=== PATIENT | female | born 1990 | race Hispanic/Latino ===

== ENCOUNTER 2019-06-05 11:02 | Emergency (ER) | payer MEDICAID ==
[2019-06-05] MEDS ORDERED: ONDANSETRON ODT 4 MG TAB ONE (11:15)
[2019-06-05] MEDS ORDERED: ACETAMINOPHEN EXTRA STRENGTH 500 MG TABLET ONE (12:34)
[2019-06-05 12:51] LABS: RAPID GROUP A STREP NEGATIVE (NEGATIVE)
[2019-06-05 13:15] LABS: APPEARANCE,URINE CLEAR (CLEAR); BILIRUBIN,URINE MODERATE (NEGATIVE); COLOR,URINE YELLOW (YELLOW); GLUCOSE, URINE (UA) 100 mg/dL (NEGATIVE); KETONES,URINE 5 mg/dL (NEGATIVE); LEUKOCYTE ESTERASE ,URINE NEGATIVE (NEGATIVE); NITRATE,URINE POSITIVE (NEGATIVE); OCCULT BLOOD,URINE LARGE (NEGATIVE); PROTEIN,URINE 30 mg/dL (NEGATIVE)
[2019-06-05 13:17] LABS: HCG,QUAL RESULT NEGATIVE (NEGATIVE)
[2019-06-05 13:25] LABS: RBC,URINE 0-1 /HPF (0-1)
[2019-06-05 13:26] LABS: AMORPHOUS SEDIMENT,UR Few /LPF (None Seen); BACTERIA,URINE Moderate /HPF (None Seen); SQUAMOUS EPITHELIAL CELL,UR Moderate /HPF (0-2)
== END 2019-06-05 14:05 | disposition home or self-care (01) ==
LOC: EDH 11:02
DX: N39.0 Urinary tract infection, site not specified (principal); Z90.49 Acquired absence of other specified parts of digestive tract
CPT/HCPCS: 81001; 81025; 87804; 87880

== ENCOUNTER 2019-08-17 20:32 | Emergency (ER) | payer MEDICAID ==
[2019-08-17] MEDS ORDERED: ACETAMINOPHEN EXTRA STRENGTH 500 MG TABLET ONE (20:39)
[2019-08-17 21:03] LABS: RAPID GROUP A STREP NEGATIVE (NEGATIVE)
== END 2019-08-17 22:51 | disposition home or self-care (01) ==
LOC: EDH 20:32
DX: J01.10 Acute frontal sinusitis, unspecified (principal); R50.9 Fever, unspecified; Z90.49 Acquired absence of other specified parts of digestive tract
CPT/HCPCS: 87804; 87880

== ENCOUNTER 2021-11-09 17:29 | Emergency (ER) | payer MEDICAID ==
[~2021-11-09] VITALS: Ht 157.5 cm; Wt 63.5 kg
[2021-11-09 17:31] VITALS: BP 134/74
[2021-11-09] MEDS ORDERED: HC0.215O TP (17:53)
== END 2021-11-09 18:01 | disposition home or self-care (01) ==
LOC: EDH 17:29
DX: L30.1 Dyshidrosis [pompholyx] (principal); Z90.49 Acquired absence of other specified parts of digestive tract; Z98.890 Other specified postprocedural states